=== PATIENT | female | born 1975 | race Caucasian/White ===

== ENCOUNTER 2016-05-07 11:46 | Emergency (ER) | payer OTHER ==
[2016-05-07 11:55] VITALS: TEMP 97.7; BMI 37.9
[2016-05-07] MEDS ORDERED: ONDANSETRON HCL 4 MG/2 ML VIAL IV STA (12:20)
[2016-05-07] MEDS ORDERED: NS 1,000 ML IV ONE (12:20)
[2016-05-07 12:28] LABS: AUTOMATED BASOPHIL 0.8 % (0-2); AUTOMATED EOSINOPHIL 1.7 % (0-5); AUTOMATED MONOCYTE 5.6 % (3-10); AUTOMATED NEUTROPHIL 69.9 % (45-76); MPV 9.3 fL (7.4-10.4)
[2016-05-07 12:43] LABS: BLOOD UREA NITROGEN 14 MG/DL (7-17); CALC CORRECTED 9.2 MG/DL (8.4-10.2); CALCULATED OSMOLALITY 269 MOs/Kg (270-290); CHLORIDE 105 mEq/L (98-107); GLUCOSE 91 MG/DL (70-99); SODIUM LEVEL 139 mEq/L (137-146)
[2016-05-07 12:54] LABS: LEUKOCYTES/URINE TRACE (NEGATIVE); NITRITE/URINE NEG (NEGATIVE); RBC/URINE 0-2 (0-5); URINE OCCULT BLOOD NEG (NEG/TRACE)
--- NOTE | 2016-05-07 13:12 | EDPRACDOC ---
- General Information Chief Complaint: Generalized Weakness Stated Complaint: NEAR SYNCOPE Time Seen by Provider: 05/07/16 12:00 Information Source: Patient Home Medications: Home Medications Biotin 1 mg PO DAILY 06/29/15 Cholecalciferol (Vitamin D3) [Vitamin D3 (cholecalciferol)] 5,000 units PO DAILY 06/29/15 Melatonin/Pyridoxine HCl (B6) [Melatonin 10 mg Tablet] 1 tab PO QHS 06/29/15 Omeprazole 20 mg PO DAILY 06/29/15 Albuterol/Ipratropium Neb [Duoneb] 3 ml NEB Q6H PRN 01/09/16 Nebulizer [Needs Home Nebulizer] 1 item NEB DIR 01/09/16 Venlafaxine HCl ER [Effexor XR] 225 mg PO DAILY 05/07/16 Allergies/Adverse Reactions: Allergies Allergy/AdvReac Type Severity Reaction Status Date / Time wheat Allergy GASTIC Verified 05/07/16 11:52 - History of Present 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 PAIN HAS COMPLETELY RESOLVED AND SHE HAS RETURNED TO NORMAL MENTAL STATUS. Presyncopal phase:: Reports: Other (ABDOMINAL PAIN). Denies: Chest Pain, Headache Syncopal phase:: Reports: At Rest Postsyncopal phase:: Reports: Rapid recovery Associated Signs/Symptoms: Reports: Abdominal pain, Nausea, Palpitations. Denies: GI Bleed, Chest pain, Headache - Treatment Prior to ED Arrival Reported Medications/Treatment CAREERS COUNSELLOR Medications CAREERS COUNSELLOR (Medication/ zofran per EMS Dose/Time) EMS Treatment BLS IV Yes ED Past Medical History - History Reviewed Yes Nurses notes reviewed and agree except as marked - Patient Medical History Cardiac History: Reports: Hypertension GI/ History: Reports: Urinary Tract Infection, Kidney Stones, Gastroesophageal Reflux Musculoskeletal History: Reports: Arthritis (osteoarthritis), Osteoarthritis Psychological History: Reports: Depression, Anxiety Systemic History: Reports: Cancer (OVARIAN) Additional Past Medical History: FIBROMYALGIA Surgical History: Reports: Cholecystectomy, Other (oophrectomy) - Family Medical History Reports: Hypertension (MOM,DAD), Cardiac Disorders (MOM,DAD). Denies: Diabetes , Cancer, Stroke - Social Medical History Smoking Status: Current some day smoker Lives With: Family Lives In: Home EDM Review of Systems - Review of Systems ROS Negative Except as Marked: Yes All systems reviewed and were negative except as marked Constitutional: Fatigue. negative: Fever Respiratory: negative: Cough Cardiovascular: negative: Chest Pain Gastrointestinal: Nausea, Pain. negative: Vomiting Genitourinary: negative: Dysuria, - Physical Exam Constitutional: Alert Oriented to: Time, Person, Place Last recorded Vital Signs: Last Vital Signs Temp 97.7 F 05/07/16 11:52 Pulse 69 05/07/16 12:39 Resp 18 05/07/16 12:39 BP 133/75 05/07/16 12:39 Pulse Ox 98 05/07/16 12:39 Oxygen Pulse Oxygen Saturation 98 O2 Device Room Air Oxygen Flow Rate Fraction of Inspired Oxygen ( FIO2) - HEENT Head: negative: Deformity, Laceration Eye Exam: negative: Conjunctival Injection, Pale Conjunctiva Oropharynx: negative: Membranes Dry Nose: negative: Congestion, Discharge Neck: negative: Limited ROM - Respiratory/Cardiovascular Respiratory: Normal - CTA. negative: Accessory Muscle Use, Diminished, Tachypnea Cardiovascular: negative: Bradycardia, Tachycardia, Irregular - GI Auscultation: Normal Palpation: Normal Tenderness: Non tender - Musculoskeletal Extremities: Pedal Pulse (PALPABLE), Radial Pulse (PALPABLE). negative: Calf Tenderness, Pedal Edema - Integumentary Skin: Warm, Dry. negative: Rash - Neurologic Memory Impaired: Normal Motor Function: Normal Mood Description: Anxious, Appropriate Thought: Coherent Perception: Normal - Results 05/07/16 12:19 05/07/16 12:19 WBC 12.9 xk/uL (3.8-10.8) H 05/07/16 12:19 RBC 4.32 xM/uL (4.20-5.40) 05/07/16 12:19 Hgb 12.5 g/dL (12.0-16.0) 05/07/16 12:19 Hct 37.2 % (36-47) 05/07/16 12:19 MCV 86 fL (81-99) 05/07/16 12:19 MCH 28.9 pg (27-32) 05/07/16 12:19 MCHC 33.6 g/dl (33-36) 05/07/16 12:19 RDW 14.6 % (11.5-14.5) H 05/07/16 12:19 Plt Count 228 xk/uL (130-400) 05/07/16 12:19 MPV 9.3 fL (7.4-10.4) 05/07/16 12:19 Neut % (Auto) 69.9 % (45-76) 05/07/16 12:19 Lymph % (Auto) 22.0 % (17-44) 05/07/16 12:19 [place] % (Auto) 5.6 % (3-10) 05/07/16 12:19 Eos % (Auto) 1.7 % (0-5) 05/07/16 12:19 Baso % (Auto) 0.8 % (0-2) 05/07/16 12:19 Absolute Neuts (auto) 8.90 xk/uL (1.7-8.2) H 05/07/16 12:19 Absolute Lymphs (auto) 2.84 xk/uL (0.65-4.75) 05/07/16 12:19 D-Dimer Quant (PE/DVT) 961 ng/mL (<500) H 05/07/16 12:19 Sodium 139 mEq/L (137-146) 05/07/16 12:19 Potassium 4.1 mEq/L (3.5-5.1) 05/07/16 12:19 Chloride 105 mEq/L (98-107) 05/07/16 12:19 Carbon Dioxide 26 mMOL/L (22-33) 05/07/16 12:19 Anion Gap 12 mEq/L (8-16) 05/07/16 12:19 BUN 14 MG/DL (7-17) 05/07/16 12:19 Creatinine 0.70 MG/DL (0.52-1.04) 05/07/16 12:19 Estimated GFR (MDRD) > 60 mL/min (>=60) 05/07/16 12:19 Glucose 91 MG/DL (70-99) 05/07/16 12:19 Calculated Osmolality 269 MOs/Kg (270-290) L 05/07/16 12:19 Calcium 9.0 MG/DL (8.4-10.2) 05/07/16 12:19 Corrected Calcium 9.2 MG/DL (8.4-10.2) 05/07/16 12:19 Total Bilirubin 0.4 MG/DL (0.2-1.3) 05/07/16 12:19 AST 22 IU/L (14-36) 05/07/16 12:19 ALT 32 IU/L (9-52) 05/07/16 12:19 Alkaline Phosphatase 107 IU/L (38-126) 05/07/16 12:19 Troponin I < 0.01 ng/mL (<.04) 05/07/16 12:19 Total Protein 7.0 G/DL (6.3-8.2) 05/07/16 12:19 Albumin 3.8 G/DL (3.5-5.0) 05/07/16 12:19 Urine Color Yellow 05/07/16 12:04 Urine Clarity Clear 05/07/16 12:04 Urine pH 6.0 (5.0-8.0) 05/07/16 12:04 Ur Specific [place] 1.005 (1.003-1.035) 05/07/16 12:04 Urine Protein Neg (NEG/TRACE) 05/07/16 12:04 Urine Glucose (UA) Neg (NEGATIVE) 05/07/16 12:04 Urine Ketones Neg (NEGATIVE) 05/07/16 12:04 Urine Occult Blood Neg (NEG/TRACE) 05/07/16 12:04 Urine Nitrite Neg (NEGATIVE) 05/07/16 12:04 Urine Bilirubin Neg (NEGATIVE) 05/07/16 12:04 Urine Urobilinogen 2 MG/DL (0-1) H 05/07/16 12:04 Ur Leukocyte Esterase Trace (NEGATIVE) H 05/07/16 12:04 Urine RBC 0-2 (0-5) 05/07/16 12:04 Urine WBC 2-5 (0-5) 05/07/16 12:04 Ur Epithelial Cells Occ 05/07/16 12:04 Urine Bacteria Few (NEG/FEW) 05/07/16 12:04 Urine Mucus Occ (NEG/OCC) 05/07/16 12:04 Lab Results 05/07/16 05/07/16 05/07/16 12:19 12:19 12:19 WBC 12.9 H RBC 4.32 Hgb 12.5 Hct 37.2 MCV 86 MCH 28.9 MCHC 33.6 RDW 14.6 H Plt Count 228 MPV 9.3 Neut % (Auto) 69.9 Lymph % (Auto) 22.0 [place] % (Auto) 5.6 Eos % (Auto) 1.7 Baso % (Auto) 0.8 Absolute Neuts (auto) 8.90 H Absolute Lymphs (auto) 2.84 D-Dimer Quant (PE/DVT) 961 H Sodium 139 Potassium 4.1 Chloride 105 Carbon Dioxide 26 Anion Gap 12 BUN 14 Creatinine 0.70 Estimated GFR (MDRD) > 60 Glucose 91 Calculated Osmolality 269 L Calcium 9.0 Corrected Calcium 9.2 Total Bilirubin 0.4 AST 22 ALT 32 Alkaline Phosphatase 107 Troponin I < 0.01 Total Protein 7.0 Albumin 3.8 Urine Color Urine Clarity Urine pH Ur Specific [place] Urine Protein Urine Glucose (UA) Urine Ketones Urine Occult Blood Urine Nitrite Urine Bilirubin Urine Urobilinogen Ur Leukocyte Esterase Urine RBC Urine WBC Ur Epithelial Cells Urine Bacteria Urine Mucus 05/07/16 12:04 WBC RBC Hgb Hct MCV MCH MCHC RDW Plt Count MPV Neut % (Auto) Lymph % (Auto) Woodson % (Auto) Eos % (Auto) Baso % (Auto) Absolute Neuts (auto) Absolute Lymphs (auto) D-Dimer Quant (PE/DVT) Sodium Potassium Chloride Carbon Dioxide Anion Gap BUN Creatinine Estimated GFR (MDRD) Glucose Calculated Osmolality Calcium Corrected Calcium Total Bilirubin AST ALT Alkaline Phosphatase Troponin I Total Protein Albumin Urine Color Yellow Urine Clarity Clear Urine pH 6.0 Ur Specific [place] 1.005 Urine Protein Neg Urine Glucose (UA) Neg Urine Ketones Neg Urine Occult Blood Neg Urine Nitrite Neg Urine Bilirubin Neg Urine Urobilinogen 2 H Ur Leukocyte Esterase Trace H Urine RBC 0-2 Urine WBC 2-5 Ur Epithelial Cells Occ Urine Bacteria Few Urine Mucus Occ - EKG EKG #1 EKG Time: 11:56 -: Yes EKG interpreted by me Rate: bpm: 66 [place]: Normal Rhythm: NSR Block: None Hypertrophy: None ST: Normal Decision Time to Discharge: 14:43 - Departure Yes I personally saw and evaluated the patient. Disposition: Home Condition: Stable Final Diagnosis: Syncope Qualifiers: Syncope type: unspecified Qualified Code(s): R55 - Syncope and collapse Instructions: Syncope (ED) Education/Counseling Given To: Patient, Family Member Education/Counseling Given Regarding: Diagnosis, Treatment, Prognosis, Follow Up Referrals: Carol Wilkinson RESEARCH INSTRUCTOR [Primary Care Provider] - As Needed Additional Instructions: MAKE SURE TO TAKE IN PLENTY OF FLUIDS.
--- NOTE | 2016-05-07 13:25 | DIRPT ---
CLINICAL DATA: Dyspnea, near syncopal episode. EXAM: CHEST 2 VIEW COMPARISON: 01/09/2016 FINDINGS: Cardiomediastinal silhouette is normal. Mediastinal contours appear intact. There is no evidence of focal airspace consolidation, pleural effusion or pneumothorax. Linear peribronchial opacities in the right lower lobe are seen. Osseous structures are without acute abnormality. Soft tissues are grossly normal. IMPRESSION: Right lower lobe linear peribronchial thickening, which may be seen with acute bronchitis, or atelectasis. Electronically Signed By: Theron Richmond M.D. On: 05/07/2016 13:22
[2016-05-07] MEDS ORDERED: Pharmacy Review for Metformin - IV Contrast Given SCH (14:00)
--- NOTE | 2016-05-07 14:33 | DIRPT ---
CLINICAL DATA: Near syncope. Nausea. Elevated D-dimer. Remote history of ovarian cancer. EXAM: CT ANGIOGRAPHY CHEST WITH CONTRAST TECHNIQUE: Multidetector CT imaging of the chest was performed using the standard protocol during bolus administration of intravenous contrast. Multiplanar CT image reconstructions and MIPs were obtained to evaluate the vascular anatomy. CONTRAST: 100 cc Isovue 370 COMPARISON: 05/07/2016 radiograph FINDINGS: Mediastinum/Nodes: No filling defect is identified in the pulmonary arterial tree to suggest pulmonary embolus. A focal hypodensity in the right upper lobe pulmonary arterial branch centrally on image 72 series 2 is attributable to streak artifact from the adjacent high density contrast in the SVC. No aortic dissection or acute aortic findings. No pericardial effusion. Upper normal size left infrahilar lymph node, 0.8 cm in short axis on image 46 series 3. No overtly pathologic thoracic adenopathy. Lungs/Pleura: Linear subsegmental atelectasis medially in the right middle lobe. Upper abdomen: Cholecystectomy clips noted. Musculoskeletal: Thoracic spondylosis. Review of the MIP images confirms the above findings. IMPRESSION: 1. No embolus or acute thoracic findings to explain the patient's current symptoms. 2. Linear subsegmental atelectasis medially in the right middle lobe. 3. Thoracic spondylosis Electronically Signed By: Fawad Cohn M.D. On: 05/07/2016 14:30
[2016-05-07 15:22] VITALS: BP 120/62; PULSE 78
== END 2016-05-07 15:18 | disposition home or self-care (01) ==
LOC: ED 11:46
DX: R55 Syncope and collapse (principal)
CPT/HCPCS: 36415; 71020; 71275; 80053; 81001; 84484; 85025; 85379; 85610; 85730; 93005; 96361; 96374; 99284; A9698; J2405